=== PATIENT | male | born 1965 | race Caucasian/White ===

== ENCOUNTER → 2019-11-06 | Outpatient (CLI) | payer BC ==
--- NOTE | 2019-11-06 16:40 | RAD ---
Right shoulder 4 views. HISTORY: Right shoulder pain AP, Grashey, Y and axillary views were taken of the right shoulder. There is no fracture. There is no dislocation. There are no abnormal calcifications. IMPRESSION: 1. No acute osseous abnormality noted in the right shoulder. Electronically signed by: Cayden Narvaez MD (11/06/2019 4:37 PM) [id number]
== END | disposition home or self-care (01) ==
LOC: RAD 15:04
PROVIDERS: ATTEND Orthopaedic Surgery
DX: M25.511 Pain in right shoulder (principal)
CPT/HCPCS: 73030

== ENCOUNTER → 2020-10-14 | Outpatient (CLI) | payer BC ==
--- NOTE | 2020-10-14 08:22 | RAD ---
INDICATION : Reason: RUQ PAIN / Spl. Instructions: / History: COMPARISON: None TECHNIQUE: Multiple ultrasound images obtained through the abdomen in grayscale and color. FINDINGS: Liver: Echogenic. Enlarged. Large portions are not well seen secondary to overlying structures obscur ing. Gallbladder: Gallstones are visualized. IVC: Largely obscured by bowel gas Common Bile Duct: Not dilated. Pancreas: Largely obscured Right Kidney: No hydronephrosis. IMPRESSION: * Liver is echogenic which can be seen with fatty infiltration. * Gallstones without common bile duct dilation or significant gallbladder wall thickening at this ti me. Electronically signed by: Barber Begum MD (10/14/2020 8:20 AM) [id number]
== END ==
LOC: US 07:37
PROVIDERS: ATTEND Physician Assistant Medical
DX: K80.20 Calculus of gallbladder without cholecystitis without obstruction (principal); K76.0 Fatty (change of) liver, not elsewhere classified
CPT/HCPCS: 76705

== ENCOUNTER → 2021-07-16 | Outpatient (CLI) | payer BC ==
[2021-07-16 09:21] LABS: HEMATOCRIT 55.7 % (39.0-53.0)
== END | disposition home or self-care (01) ==
LOC: LAB 08:55
PROVIDERS: ATTEND Physician Assistant Medical
DX: R97.8 Other abnormal tumor markers (principal); K76.0 Fatty (change of) liver, not elsewhere classified
CPT/HCPCS: 36415; 85014; 85018; 99195

== ENCOUNTER → 2021-08-11 | Outpatient (CLI) | payer BC ==
[2021-08-11 12:41] LABS: HEMATOCRIT 53.3 % (39.0-53.0); HEMOGLOBIN 18.1 g/dL (13.0-17.5)
== END | disposition home or self-care (01) ==
LOC: LAB 12:13
PROVIDERS: ATTEND Physician Assistant Medical
DX: R97.8 Other abnormal tumor markers (principal); Z79.899 Other long term (current) drug therapy
CPT/HCPCS: 36415; 85014; 85018; 99195